=== PATIENT | female | born 1965 | race Caucasian/White ===

== ENCOUNTER → 2018-04-28 | Outpatient (CLI) | payer OTHER ==
[~2018-04-28] MED LIST: BLACK COHOSH PO; Desyrel50 MG PO; FISH1000; Multiple Vitam1 EAC1 PO; Synthroid100 MCG PO; VALERIAN ROOT
== END | disposition home or self-care (01) ==
LOC: PLD 08:20 → LAB SHORT 08:20
DX: L57.0 Actinic keratosis (principal)
CPT/HCPCS: 88305

== ENCOUNTER 2021-01-11 11:37 | Day surgery (SDC) | payer OTHER ==
[~2021-01-11] VITALS: Ht 172.7 cm; Wt 84.3 kg
[2021-01-11] MEDS ORDERED: ACET500 (12:22)
== END 2021-01-11 14:05 | disposition home or self-care (01) ==
LOC: ORSCSDS 11:37
PROVIDERS: Internal Medicine Gastroenterology
PROC: 0DJD8ZZ Inspection of Lower Intestinal Tract, Via Natural or Artificial Opening Endoscopic (ICD-10-PCS; principal; 2021-01-11 13:00)
DX: Z12.11 Encounter for screening for malignant neoplasm of colon (principal); Z86.010 Personal history of colon polyps; Z83.71 Family history of colonic polyps; Z79.899 Other long term (current) drug therapy
CPT/HCPCS: J2704; J7120

== ENCOUNTER → 2023-06-17 | Outpatient (CLI) | payer OTHER ==
[~2023-06-17] MED LIST changes: +ACET500
== END ==
LOC: LAB SHORT 15:40 → LAB 15:40
DX: N39.0 Urinary tract infection, site not specified (principal)
CPT/HCPCS: 87077; 87086; 87186